=== PATIENT | female | born 1975 | race Caucasian/White ===

== ENCOUNTER 2017-07-29 11:51 | Emergency (ER) | payer BC ==
[~2017-07-29] VITALS: Ht 154.9 cm; Wt 50.0 kg
[2017-07-29] MEDS ORDERED: CEPHALEXIN500 M1 PO ×2 (12:51→13:07)
[2017-07-29 13:08] VITALS: BP 140/82
== END 2017-07-29 13:20 | disposition home or self-care (01) | DRG 605 ==
LOC: ED 11:51
PROC: 0HQCXZZ Repair Left Upper Arm Skin, External Approach (ICD-10-PCS; principal; 2017-07-29)
DX: S41.112A Laceration without foreign body of left upper arm, initial encounter (principal); W26.0XXA Contact with knife, initial encounter; Y93.89 Activity, other specified; Y92.009 Unspecified place in unspecified non-institutional (private) residence as the place of occurrence of the external cause